=== PATIENT | female | born 1950 | race Caucasian/White ===

== ENCOUNTER 2020-10-13 20:35 | Emergency (ER) | payer MEDICARE ==
[2020-10-13] MEDS ORDERED: MORPHINE SULFATE 10 MG/ML INJ IV ONE (22:41)
--- NOTE | 2020-10-13 22:50 | ER Document Report ---
ED Neck/Back Problem - General Chief Complaint: Back Pain Stated Complaint: LOW BACK PAIN Time Seen by Provider: 10/13/20 22:25 - HPI Notes: Patient is a 69-year-old female who presents with low back pain. Patient states she moved here from [place]. She has not yet found a family doctor in the area. She noticed low back pain when she was packing. Pain began 1 week ago. It is worsening. She describes it as a sharp pain that radiates across her lower back. She denies any significant trauma. She states there is no radiating pain down her legs. She denies any abdominal pain currently. No fevers or chills. Patient states she was diagnosed with Covid on October 10. No shortness of breath or chest pain. No cough. Never had any back surgeries. Patient states that she took her Flexeril yesterday but it did not help as it was out of date. She states this feels like her normal back pain that is worsened after moving and packing boxes. - Related Data Allergies/Adverse Reactions: cefaclor [From [facility]] Allergy (Verified 10/13/20 21:32) Penicillins Allergy (Verified 10/13/20 21:32) Sulfa (Sulfonamide Antibiotics) Allergy (Verified 10/13/20 21:32) Past Medical History - General Information source: Patient - Social History Smoking Status: Former Smoker Chew tobacco use (# tins/day): No Frequency of alcohol use: Rare Drug Abuse: None Family History: Reviewed & Not Pertinent Pulmonary Medical History: Reports: Hx COPD Past Surgical History: Reports: Hx Cardiac Surgery - triple bypass Review of Systems - Review of Systems Notes: CONSTITUTIONAL: No fever, fatigue or weight loss. SKIN: No rash. HENT: No congestion, ear pain, or sore throat. CARDIOVASCULAR: No chest pain or edema. RESPIRATORY: No cough, shortness of breath, congestion, or wheezing. GASTROINTESTINAL: No abdominal pain, nausea, vomiting, bloody stools or diarrhea. GENITOURINARY: No dysuria. MUSCULOSKELETAL: No joint pain or swelling. Positive for low back pain. NEUROLOGIC: No seizures. No headache, focal weakness or sensory changes. HEMATOLOGIC: No unusual bruising or bleeding. PSYCHIATRIC: No depression or anxiety. Physical Exam - Vital signs Vitals: Temp 97.7 F 10/13/20 20:36 - General General appearance: Appears well In distress: Mild Notes: VITAL SIGNS: Within normal limits. GENERAL: non-toxic appearance. Appears uncomfortable due to back pain HEAD: Normal with no signs of head trauma. EYES: EOMI, conjunctiva normal, no discharge. EARS: Hearing grossly intact. NECK: Normal range of motion, no tenderness, supple, no lymphadenopathy, No adenopathy, no JVD. CHEST: Clear breath sounds bilaterally. No wheezes, rales, or rhonchi. CARDIAC: Regular rate and rhythm. S1 and S2, without murmurs, gallops, or rubs. VASCULAR: No Edema. ABDOMEN: Normal and soft with no tenderness, no masses or pulsatile masses. GENITOURINARY: Normal, No tenderness MUSCULOSKELETAL: Good range of motion of all major joints. Extremities without clubbing, cyanosis or edema. Range of motion and strength intact of bilateral lower extremities. Pain is reproducible with straight leg raise. Discomfort to palpation of lumbar spine and paraspinal musculature bilaterally. No rashes. NEUROLOGICAL: Alert and oriented x 3. No focal sensory or strength deficits. Speech normal. Follows commands appropriately. PSYCHIATRIC: Normal Affect, judgement and mood. SKIN: Normal appearance with no rashes or lesions. Course - Re-evaluation Re-evalutation: 10/14/20 05:58 Patient feels much better after treatment. She does have known Covid. Her CT shows groundglass opacities. There is no acute findings in the lumbar spine or the abdomen. Patient ambulated in the room by herself without assistance and pulse ox remained in the 90s. She was given pain medicine and Decadron. Patient's urine was suspicious for a UTI. She was treated with antibiotics. Her urine was sent for culture. Patient states she feels better. I did refill her Flexeril prescription as well as a lidocaine patch. Patient was given the number for a family doctor to follow-up with. She knows that she should self isolate until she is symptom-free. Patient was given strict return precautions. She is very agreeable to the plan. - Vital Signs Vital signs: Temp Pulse Resp BP Pulse Ox 98.0 F 98 18 134/84 H 95 10/14/20 02:28 10/14/20 02:28 10/14/20 02:28 10/14/20 02:28 10/14/20 02:28 - Laboratory Result Diagrams: 10/13/20 22:58 10/13/20 22:58 Laboratory results interpreted by me: 10/13/20 10/13/20 10/14/20 22:58 22:58 02:31 RDW 14.2 H Potassium 3.5 L AST 41 H Urine Protein 30 H Urine Urobilinogen 4.0 H Ur Leukocyte Esterase TRACE H - Diagnostic Test Radiology reviewed: Image reviewed, Reports reviewed Discharge - Discharge Clinical Impression: Back pain Qualifiers: Back pain location: low back pain Chronicity: acute Back pain laterality: bi lateral Sciatica presence: without sciatica Qualified Code(s): M54.5 - Low back pain Urinary tract infection Qualifiers: Urinary tract infection type: site unspecified Hematuria presence: without hematuria Qualified Code(s): N39.0 - Urinary tract infection, site not specified Condition: Stable Disposition: HOME, SELF-CARE Instructions: Urinary Tract Infection ([facility]), Low Back Pain ([facility]) Additional Instructions: Follow-up with the family doctor provided. You can take Flexeril as prescribed. You have evidence of a possible urinary tract infection. Please take your antibiotics as prescribed. Return to the ER for any shortness of breath, running pain, fever, any other concerning symptoms. Prescriptions: Cyclobenzaprine HCl [Flexeril 10 mg Tablet] 10 mg PO BID PRN #8 tablet PRN Reason: Lidocaine [Lidocaine Pain Relief] 1 each TP DAILY #3 adh..patch Nitrofurantoin Monohyd/M-Cryst [Macrobid 100 mg Capsule] 100 mg PO BID 5 Days #10 cap Referrals: ARPAN URIBE MD [ACTIVE STAFF] - Follow up in 3-5 days
[2020-10-13 23:03] LABS: ABSOLUTE EOSINOPHILS # (AUTO) 0.1 10^3/uL (0.0-0.6); ABSOLUTE MONOCYTES (AUTO) 0.4 10^3/uL (0.1-1.4); ABSOLUTE NEUT (AUTO) 5.3 10^3/uL (1.7-8.2); MEAN CORPUSCULAR HEMOGLOBIN 29.9 pg (27.0-33.4); TOTAL CELLS COUNTED % (AUTO) 100 %
[2020-10-13 23:08] LABS: BASOPHILS % (AUTO) 0.5 % (0-2); EOSINOPHILS % (AUTO) 1.3 % (0-6); HEMATOCRIT 37.3 % (36.0-47.0); HEMOGLOBIN 12.5 g/dL (12.0-15.5); LYMPHOCYTES % (AUTO) 14.6 % (13-45); MEAN CORPUSCULAR HGB CONC 33.5 g/dL (32.0-36.0); MEAN CORPUSCULAR VOLUME 89 fl (80-97); PLATELET COUNT 320 10^3/uL (150-450); RED BLOOD COUNT 4.18 10^6/uL (3.72-5.28); RED CELL DISTRIBUTION WIDTH 14.2 % (11.5-14.0); SEGMENTED NEUTROPHILS % (AUTO) 77.6 % (42-78); WHITE BLOOD COUNT 6.9 10^3/uL (4.0-10.5)
[2020-10-13 23:24] LABS: ALBUMIN 3.9 g/dL (3.5-5.0); ANION GAP 9 (5-19); ASPARTATE AMINO TRANSFERASE 41 U/L (14-36); BLOOD UREA NITROGEN 17 mg/dL (7-20); CALCIUM 9.3 mg/dL (8.4-10.2); CARBON DIOXIDE 27 mmol/L (22-30); CHLORIDE 104 mmol/L (98-107); GLUCOSE 101 mg/dL (75-110); POTASSIUM 3.5 mmol/L (3.6-5.0)
[2020-10-13 23:25] LABS: ALKALINE PHOSPHATASE 68 U/L (38-126); BILIRUBIN,DIRECT 0.2 mg/dL (0.0-0.4); BILIRUBIN,TOTAL 0.6 mg/dL (0.2-1.3); TOTAL PROTEIN 6.8 g/dL (6.3-8.2)
--- NOTE | 2020-10-14 01:39 | RADIOLOGY REPORT (SQ) ---
EXAM DESCRIPTION: CT ABDOMEN PELVIS WITHOUT IV CONTRAST COMPLETED DATE/TME: 10/14/2020 01:27 CLINICAL HISTORY: 69 years, Female, LUMBAR abdominal pain after packing moving boxes. COMPARISON: None. TECHNIQUE: Axial CT images of the abdomen and pelvis were obtained without contrast. Sagittal and coronal reformats were performed. DLP 653 Images stored on PACS. All CT scanners at this facility use dose modulation, iterative reconstruction, and/or weight based dosing when appropriate to reduce radiation dose to as low as reasonably achievable (ALARA). [facility]: Dose Right [facility]: CareDose [facility]: Dose Right [facility]: Teradose 4D [facility]: [employer] LIMITATIONS: None. FINDINGS: There are peripheral groundglass opacities along the lung bases. The liver, gallbladder, pancreas, spleen, and adrenal glands are unremarkable. No evidence of urolithiasis or hydronephrosis bilaterally. Both kidneys appear unremarkable. There is no intraperitoneal free air or fluid. There is no lymphadenopathy. There are atherosclerotic calcific effusions of the abdominal aorta. Small hiatal hernia. Small bowel is unremarkable. Appendix is normal. Colonic diverticulosis without evidence of diverticulitis. The urinary bladder and uterus are unremarkable. There is no acute fracture or dislocation. IMPRESSION: Groundglass opacities along the periphery of the lungs. These findings are typical for Covid pneumonia. Small hiatal hernia. Diverticulosis without evidence of diverticulitis. TECHNICAL DOCUMENTATION: Quality ID # [id number]: Final reports with documentation of one or more dose reduction techniques (e.g., Automated exposure control, adjustment of the mA and/or kV according to patient size, use of iterative reconstruction technique) copyright 2011 [employer]- All Rights Reserved
[2020-10-14] MEDS ORDERED: HYDROCODONE/ACETAMINOPHEN 5-325 MG TABLET PO ONE (01:54)
[2020-10-14] MEDS ORDERED: DEXAMETHASONE SOD PHOSPHATE INJ 4 MG/1 ML VIAL IV ONE (01:56)
[2020-10-14 03:23] LABS: APPEARANCE,URINE SLIGHTLY-CLOUDY; BILIRUBIN,URINE NEGATIVE (NEGATIVE); COLOR,URINE AMBER; GLUCOSE, URINE NEGATIVE (NEGATIVE); KETONES,URINE NEGATIVE (NEGATIVE); LEUKOCYTE ESTERASE,URINE TRACE (NEGATIVE); NITRITE,URINE NEGATIVE (NEGATIVE); PROTEIN,URINE 30 mg/dL (NEGATIVE); URINE SPECIFIC GRAVITY 1.025
[2020-10-14] MEDS ORDERED: NITROFURANTOIN MONOHYD/M-CRYST 100 MG CAPSULE PO ONE (03:30)
[2020-10-14 03:47] VITALS: BP 132/85
== END 2020-10-14 03:45 | disposition home or self-care (01) ==
LOC: ER 20:35
DX: N39.0 Urinary tract infection, site not specified (principal); M54.5 Low back pain; K57.30 Diverticulosis of large intestine without perforation or abscess without bleeding; K44.9 Diaphragmatic hernia without obstruction or gangrene; U07.1 COVID-19; Z87.891 Personal history of nicotine dependence; Z88.1 Allergy status to other antibiotic agents; Z88.0 Allergy status to penicillin; Z88.2 Allergy status to sulfonamides
CPT/HCPCS: 99285; 96374; 96375; 36415; 87086; 85025; 80053; 81001; 74176; J1100; J2270; A9270 ×2; J8499